=== PATIENT | female | born 1940 | race Caucasian/White ===

== ENCOUNTER → 2017-02-07 07:50 | Outpatient (CLI) | payer MEDICARE ==
[2015-01-01 10:33] VITALS: BMI 24.4
[~2017-02-07 07:50] MED LIST: BAYER CHEWABLE81 MG PO; GLUCOPHAGE500 MG PO
== END | disposition home or self-care (01) ==
LOC: D.MAMMO 07:50
DX: Z12.31 Encounter for screening mammogram for malignant neoplasm of breast (principal)

== ENCOUNTER → 2017-05-26 15:19 | Outpatient (CLI) | payer MEDICARE ==
[2015-01-01 10:33] VITALS: BMI 24.4
== END | disposition home or self-care (01) ==
LOC: D.LABREF 15:19
DX: L03.032 Cellulitis of left toe (principal)

== ENCOUNTER → 2017-07-03 16:30 | Outpatient (CLI) | payer MEDICARE ==
[2015-01-01 10:33] VITALS: BMI 24.4
== END | disposition home or self-care (01) ==
LOC: D.LABREF 16:30
DX: M86.671 Other chronic osteomyelitis, right ankle and foot (principal); L97.524 Non-pressure chronic ulcer of other part of left foot with necrosis of bone

== ENCOUNTER → 2017-11-09 12:32 | Outpatient (CLI) | payer MEDICARE ==
[2015-01-01 10:33] VITALS: BMI 24.4
== END | disposition home or self-care (01) ==
LOC: D.MRI 12:32
DX: M54.6 Pain in thoracic spine (principal); R93.8 Abnormal findings on diagnostic imaging of other specified body structures

== ENCOUNTER → 2019-05-23 08:30 | Outpatient (CLI) | payer MEDICARE ==
[2015-01-01 10:33] VITALS: BMI 24.4
== END | disposition home or self-care (01) ==
LOC: D.MAMMO 08:30
PROVIDERS: ATTEND Family Medicine Adult Medicine
DX: Z12.31 Encounter for screening mammogram for malignant neoplasm of breast (principal)